=== PATIENT | female | born 1955 | race African-American/Black ===

== ENCOUNTER 2016-12-02 11:48 | Observation (INO) ==
[2016-12-02] MEDS ORDERED: Aspirin 81 MG TAB.CHEW PO ONE (12:16)
[2016-12-02] MEDS ORDERED: Nitroglycerin 0.4 MG TAB.SUBL SL ONE (12:16)
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
[2016-12-02 13:12] LABS: Basophils % 0.6 %; Eosinophils # 0.3 K/mcL (0.0-0.6); Eosinophils % 4.8 %; Hematocrit 42.4 % (35.3-44.9); Hemoglobin 13.6 g/dL (11.5-15.4); Immature Granulocytes % 0.3 % (0-4); Lymphocytes # 2.2 K/mcL (0.6-4.6); Lymphocytes % 33.9 %; Mean Corpuscular HGB Conc 32.1 g/dL (31.6-35.5); Mean Corpuscular Hemoglobin 28.2 pg (28.0-33.3); Mean Platelet Volume 10.8 fL (9.4-12.4); Monocytes # 0.3 K/mcL (0.0-1.3); Monocytes % 4.6 %; Neutrophils # 3.6 K/mcL (1.6-8.9); Platelet Count 224 K/mcL (140-400); Red Blood Count 4.82 M/mcL (3.82-4.97); Segmented Neutrophils % 55.8 %
[2016-12-02 13:20] LABS: Prothrombin Time 11.3 Seconds (9.4-12.1)
[2016-12-02 13:22] LABS: Activated Partial Thrombo Time 37.8 Seconds (26.0-36.0)
[2016-12-02 13:26] LABS: BUN/Creatinine Ratio 11 (6-26); Blood Urea Nitrogen 8 mg/dL (7-20); Calcium 9.6 mg/dL (8.6-10.8); Carbon Dioxide 25 mEq/L (19-29); Chloride 109 mEq/L (98-109); Glucose 86 mg/dL (70-99); Osmolality,Calculated 292 (280-300); Potassium 3.8 mEq/L (3.5-4.5); Sodium 142 mEq/L (136-145); eGFR For African Americans > 60 (> 60); eGFR For Non-African Americans > 60 (> 60)
[2016-12-02 13:55] LABS: Lipase 9 Units/L (8-78)
[2016-12-02] MEDS ORDERED: Acetaminophen 325 MG TABLET PO PRN (14:26)
[2016-12-02] MEDS ORDERED: Naloxone 0.4 MG/ML INJ IVP PRN (14:26)
--- NOTE | 2016-12-02 15:20 | Internal Med History&Physical ---
Date of Encounter: 12/02/16 Time of Encounter: 15:00 Assessment and Plan (1) Chest pain Current visit: Yes Status: Acute Atypical chest pain but multiple risk factors for coronary artery disease and ACS. We will trend troponins. Place on telemetry. Check A1c, lipid profile. Monitor vital signs. Stress test tomorrow. High risk for complications. Qualifiers: Chest pain type: precordial pain Qualified Code(s): R07.2 - Precordial pain (2) COPD exacerbation Current visit: Yes Status: Acute Acute exacerbation of chronic bronchitis. Will treat with prednisone, azithromycin. Bronchodilators and O2 supplementation (3) Essential hypertension Current visit: Yes Status: Acute (4) Diabetes mellitus, type 2 Current visit: Yes Status: Chronic Patient with history of diabetes mellitus type 2. Most recent A1c was 6%. Monitor blood sugars. Low-dose sliding scale insulin. 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 Vincent is a 61 year old female patient with a history of COPD, hypertension , diabetes who presented to the ER with complaints of chest pain. She has been having intermittent chest pain occasionally over the past couple of weeks but this morning her pain was much worse. It is located centrally in her chest and in the epigastric region and radiating to the left side. She says the pain gets worse when she gets excited or anxious and with activity. She denies any shortness of breath but she does have cough with production of yellowish sputum with tinges of blood for the past couple of days. Denies any fever chills or night sweats. She is a chronic cigarette smoker. Past Med Surg Social Fam HX - Past Medical History Attestation: Yes The following information was validated with the patient. Source: patient Medical history: diabetes, hypertension Psychiatric history: depression - Past Surgical History Surgical History: other - Social History Smoking Status: Current every day smoker Smokeless Tobacco Status: No Alcohol use: none Drug use: none - Additional Family History Additional family history: Reviewed and found to be noncontributory at this time Internal Medicine - H&P: Meds ALPRAZolam [Xanax 1 MG Tablet] 1 mg PO BID 12/02/16 [History] Albuterol Neb [Proventil Neb] 2.5 mg IH Q6H PRN 12/02/16 [History] Albuterol Sulfate [Proair Hfa] 2 puff IH Q4-6H PRN 12/02/16 [History] Bifidobacterium Infantis [Align] 4 mg PO DAILY 12/02/16 [History] Budesonide/Formoterol 160/4.5 [Symbicort 160/4.5] 2 puff IH BIDR 12/02/16 [ History] Cholecalciferol (D-3) [Vitamin D] 1,000 unit PO DAILY 12/02/16 [History] Diclofenac Sodium [Voltaren] 50 mg PO BID 12/02/16 [History] Escitalopram [Lexapro] 5 mg PO DAILY 12/02/16 [History] Estradiol [Estrace] 1 appl VG MOWEFR 12/02/16 [History] Gabapentin [Neurontin] 300 mg PO BID 12/02/16 [History] Gabapentin [Neurontin] 600 mg PO HS 12/02/16 [History] Guaifenesin [Mucinex] 600 mg PO HS PRN 12/02/16 [History] Ipratropium [Atrovent Inhaler] 2 puff IH QID 12/02/16 [History] Lisinopril [Zestril] 20 mg PO DAILY 12/02/16 [History] Metformin HCl [Glucophage] 1,000 mg PO BID 12/02/16 [History] Oxybutynin [Ditropan] 5 mg PO BID 12/02/16 [History] Polyvinyl Alcohol/Povidone/Pf [Refresh Classic Eye Drops] 1 drop OP DAILY [History] Psyllium Husk [Fiber] 0.52 gm PO DAILY 12/02/16 [History] Ranitidine HCl [Heartburn Relief] 150 mg PO HS 12/02/16 [History] Simvastatin [Zocor] 20 mg PO HS 12/02/16 [History] amLODIPine [Norvasc] 5 mg PO DAILY 12/02/16 [History] Allergies No Known Allergies Allergy (Verified 12/02/16 13:45) All Systems PM: A 10-system review of systems was performed and is negative for pertinent findings except as documented above in the HPI. - Constitutional Constitutional: no chills, no fever(s), no night sweats - EENT Eyes: no change in vision, no discharge, no pain, no photophobia Ears: no ear discharge, no ear pain, no tinnitus Nose, mouth and throat: no dysphagia, no nasal discharge, no neck pain, no sore throat - Cardiovascular Cardiovascular ROS IM: chest pain, no diaphoresis, no dyspnea, no lightheadedness, no palpitations, no syncope - Respiratory Respiratory: cough, excessive phlegm production, change in phlegm color, pain with cough, no dyspnea, no wheezing - Gastrointestinal Gastrointestinal: no abdominal pain, no diarrhea, no hematemesis, no hematochezia, no melena, no nausea, no vomiting - Genitourinary Genitourinary: no change in urinary stream, no dysuria, no flank pain, no hematuria - Musculoskeletal Musculoskeletal ROS IM: no numbness, no tingling - Integumentary Integumentary IM: no rash, no unusual bruising - Neurological Neurological ROS: no confusion, no convulsions, no focal weakness, no numbness, no tingling, no tremor(s) - Hematologic/Lymphatic Hematologic/Lymphatic: no easy bruising - Constitutional Vitals: Temp Pulse Resp BP Pulse Ox 97.5 F L 49 17 126/85 100 12/02/16 14:43 12/02/16 14:43 12/02/16 14:43 12/02/16 14:43 12/02/16 14:43 General appearance: Present: cooperative, mild distress, A&O X 3, answers questions appropriately - Neck Neck exam general surgery: Present: supple, trachea midline. Absent: lymphadenopathy - Respiratory Respiratory exam: Present: chest wall tenderness, CTAB. Absent: accessory muscle use, rales, rhonchi, wheezes - Cardiovascular Cardiovascular exam: Present: RRR, +S1, +S2. Absent: diastolic murmur, gallop, rubs, systolic murmur - GI/Abdominal GI/Abdominal exam: Present: normal bowel sounds, soft, no peritoneal signs. Absent: distended, tenderness - Extremities Exam Extremities exam: Present: warm, radial pulses palpable and symetrical. Absent : calf tenderness, cyanotic, pedal edema - Neurological Exam Neurological exam: Present: alert, CN II-XII intact, oriented X3, no focal deficits. Absent: facial droop, speech deficit Internal Med - H&P Results - Labs CBC & Chem 7: 12/02/16 12:55 12/02/16 12:55 - EKG Data -: EKG Interpreted by Myself EKG shows normal: sinus rhythm Rate: bradycardia - EKG Data EKG comments: 12/02/16 15:22 Sinus bradycardia without any acute ST segment changes
[2016-12-02] MEDS ORDERED: D5% in Water 1,000 ML IVC PRN (15:26)
[2016-12-02] MEDS ORDERED: *HR* Dextrose 50 % in Water (Syg) 50 ML SYRINGE IVP PRN (15:26)
[2016-12-02] MEDS ORDERED: Dextrose Gel 15 GM PO PRN ×2 (15:26)
[2016-12-02] MEDS ORDERED: Ipratropium/Albuterol Neb 3 ML IH PRN (15:34)
[2016-12-02] MEDS ORDERED: predniSONE 20 MG TABLET PO SCH (15:45)
[2016-12-02] MEDS ORDERED: Azithromycin 500 MG in D5% in Water 250 ML IVPB SCH (16:00)
[2016-12-02] MEDS: Insulin LISPRO 300 UNITS/3 ML VIAL SQ SCH (17:18)
[2016-12-02] MEDS ORDERED: Insulin LISPRO 300 UNITS/3 ML VIAL SQ SCH (21:00)
[2016-12-03 04:23] LABS: Chol/HDL Ratio 3.7 (0-4.9); Hemoglobin A1C 5.8 %
[2016-12-03] MEDS ORDERED: Regadenoson 0.4 MG/5 ML SYRINGE IVP ONE (06:20)
[2016-12-03] MEDS ORDERED: Aspirin Enteric Coated 81 MG Tablet PO SCH (09:00)
[2016-12-03] MEDS: Insulin LISPRO 300 UNITS/3 ML VIAL SQ SCH ×2 (10:13→13:02)
[2016-12-03 10:43] VITALS: BP 126/83
--- NOTE | 2016-12-03 10:49 | Nuclear Medicine Stress Report ---
Regadenoson Nuclear Stress Name: Sandi Vincent Date of Study: 12/03/2016 Date: 1955 Ht: 61.0 in Medical Record#: [id number] Age: 61 Wt: 182.0 lb Gender: Female Order #: [id number] Location: [facility] Room: [facility] Supervising Provider: Dat Dove CNP Reading Physician: Francesco Bautista DO, [facility], [facility] Ordering Physician: Lizet Lewis CNP Primary Care Physician: Dilma Travis DO Stress Technologist: Liseth Toussaint, AIDEN Aircraft Engine Assembler: Brooks Aguirre Indications: Chest Pain Impression: Pharmacologic stress ECG is non diagnostic for ischemia due to submaximal HR. Gated EF > 70%. Perfusion imaging was negative for ischemia or infarct. History: Hypertension Diabetes Hypercholesteremia History of Smoking Stress Test Summary: Stress Test Type: Pharmacologic Regadenoson 0.4mg/5ml given IV Baseline Information: Initial Heart Rate: 52 Blood Pressure: 144/86 Stress Information: Test Terminated Due to (primary): As per protocol Maximum Blood Pressure: 130/90 Maximum Heart Rate: 104 Percent Maximum Heart Rate Achieved: 65 Double Product: [id number] METS Reached: 1 Symptoms: No chest symptoms Nuclear Summary: SPECT myocardial perfusion imaging using [id number] Sestamibi given intravenously was performed at rest and following cardiac stress testing. The resting images were obtained following initial dose of 11.3 mCi. Following stress an additional dose of 35.5 mCi was given at peak exercise or 30 seconds post regadenoson infusion. Medication Given: Time Medication Dose Units Route Findings: Stress Note * Sinus bradycardia. * No baseline arrhythmias were noted. * Pharmacologic stress ECG is non diagnostic for ischemia due to submaximal HR. * No arrhythmias were noted during stress. * Patient had no chest pain during stress. Hemodynamic responses * Normal hemodynamic responses to pharmacologic stress. Study Quality * Study quality is average. Gated EF > 70% * Gated EF > 70%. Left Ventricle * The left ventricle is not dilated. * LVEDV = 78 mL. NORMALS * Normal wall motion. * Normal Segmental Perfusion in rest. * Normal segmental perfusion in stress. TID * No evidence of transient ischemic dilatation. TID ratio * TID ratio = 0.84. Lung Uptake * There is no evidence of increase lung uptake. Updated by Francesco Bautista DO, YANNICK, YUNG, TRACY on 12/03/2016 10:44:32 AM electronically signed on 12/03/2016 10:44:49 AM with status of Final
--- NOTE | 2016-12-03 13:51 | Discharge Summary ---
Date of Encounter: 12/03/16 Time of Encounter: 12:30 - Discharge Diagnosis (1) Chest pain Priority: Primary Status: Acute Comments: The patient reports sudden onset upper abdominal, low chest pain, that lasted about 4-5 hours. She said the pain began while she was sitting and smoking a cigarette, after moving a large piece of furniture by herself, exertion, and vacuuming. She said that she "felt funny", said that she felt hot, chest tightness, heaviness. Patient denies any chest pain or shortness of breath now. Her lower ribs both right and left, as well as xiphoid area are tender to palpation. She said it is area is also sore, pain increases with movement and deep inspiration. She said yesterday she was not able to take a deep breath at the time that this happened, now she is. Her EKG was normal sinus rhythm, her troponins were negative, TSH was within normal limits, A1c was 5.8. BNP is 38. Her pharmacologic stress ECG was nondiagnostic for ischemia due to stop maximal heart rate. Gated EF is greater than 70%, perfusion imaging was negative for ischemia or infarct. Qualifiers: Chest pain type: precordial pain Qualified Code(s): R07.2 - Precordial pain (2) COPD exacerbation Priority: Secondary Status: Acute Comments: Lungs are clear and diminished. Pt denies SOB or cough. Chest CT showed cardiomegaly. No consolidation, there are mildly prominent interstitial changes at lung bases bilaterally. This could be related to COPD or possible interstitial pneumonitis. Patient is being treated with steroids treatments and antibiotics. She is not requiring supplemental oxygen at this time. She is 97 and 98% on room air, she is in no distress, speaks easily in full sentences. (3) Essential hypertension Priority: Secondary Status: Acute Comments: Tonic. Continue home medications. Pressure has been well-controlled in inpatient setting. (4) Diabetes mellitus, type 2 Priority: Secondary Status: Chronic Comments: A1c is 5.8%. Continue to monitor blood sugars and continue home medication. Follow-up with primary care to determine necessity of medication. Qualifiers: Diabetes mellitus complication status: without complication Diabetes mellitus long term acute care registered nurse insulin use: without long term acute care registered nurse use Qualified Code(s): E11.9 - Type 2 diabetes mellitus without complications - Discharge Medications Prescriptions: Azithromycin [Azithromycin 6-Tab Pack] 250 mg PO PER PKG DI #6 tab predniSONE [Prednisone] 10 mg PO DAILY #9 tab.ds.pk Home Medications: ALPRAZolam [Xanax 1 MG Tablet] 1 mg PO BID 12/02/16 [History] Albuterol Neb [Proventil Neb] 2.5 mg IH Q6H PRN 12/02/16 [History] Albuterol Sulfate [Proair Hfa] 2 puff IH Q4-6H PRN 12/02/16 [History] Bifidobacterium Infantis [Align] 4 mg PO DAILY 12/02/16 [History] Budesonide/Formoterol 160/4.5 [Symbicort 160/4.5] 2 puff IH BIDR 12/02/16 [ History] Cholecalciferol (D-3) [Vitamin D] 1,000 unit PO DAILY 12/02/16 [History] Diclofenac Sodium [Voltaren] 50 mg PO BID 12/02/16 [History] Escitalopram [Lexapro] 5 mg PO DAILY 12/02/16 [History] Estradiol [Estrace] 1 appl VG MOWEFR 12/02/16 [History] Gabapentin [Neurontin] 300 mg PO BID 12/02/16 [History] Gabapentin [Neurontin] 600 mg PO HS 12/02/16 [History] Guaifenesin [Mucinex] 600 mg PO HS PRN 12/02/16 [History] Ipratropium [ATROVENT Inhaler] 2 puff IH QID 12/02/16 [History] Lisinopril [Zestril] 20 mg PO DAILY 12/02/16 [History] Metformin HCl [Glucophage] 1,000 mg PO BID 12/02/16 [History] Oxybutynin [Ditropan] 5 mg PO BID 12/02/16 [History] Polyvinyl Alcohol/Povidone/Pf [Refresh Classic Eye Drops] 1 drop OP DAILY [History] Psyllium Husk [Fiber] 0.52 gm PO DAILY 12/02/16 [History] Ranitidine HCl [Heartburn Relief] 150 mg PO HS 12/02/16 [History] Simvastatin [Zocor] 20 mg PO HS 12/02/16 [History] amLODIPine [Norvasc] 5 mg PO DAILY 12/02/16 [History] Azithromycin [Azithromycin 6-Tab Pack] 250 mg PO PER PKG DI #6 tab 12/03/16 [Rx] predniSONE [Prednisone] 10 mg PO DAILY #9 tab.ds.pk 12/03/16 [Rx] Allergies/Adverse Reactions: Allergies No Known Allergies Allergy (Verified 12/02/16 13:45) Procedures/tests Complete & Pending: Procedures Performed prior 72 hours Category Date Time Status NM sima perf SPECT multi [NM] Routine Exams 12/02/16 14:27 Taken SP pharm nuclear stress Routine Y 12/03/16 08:00 Completed Date of admission: 12/02/16 14:06 Primary care physician: Dilma Travis DO Discharging clinician: Lizet Lewis Anticipated date of discharge: 12/03/16 - Patient Status Disposition: Home, Self-Care Condition: Good Functional capacity at discharge: independent ambulation Overall status at discharge: patient is back to baseline - Discharge Instructions Follow Up With: Dilma Travis DO [Primary Care Provider] - Additional Instructions: Please follow up with your doctor in the next week to 10 days for a follow up appointment. Start your Z-pack and steroids tomorrow. Pick it up today, if you can. Resume the rest of your home medications. Talk with your primary care provider about your A1c, 5.8% and if you need to still stay on your medications for diabetes. Return to the ER if you have chest pain again, shortness of breath, dizziness, or for any other problems or concerns. Please try to get help to move furniture from now on. - Diet and Activity Activity: resume usual activities as tolerated Diet: diabetic diet Hospital course: Ms. Vincent is a 61 year old female with a prior medical history of depression, COPD, GERD, hyperlipidemia, hypertension, overactive bladder. Patient presented to the emergency department yesterday with complaint of chest pain that lasted 45 hours. Patient had been moving heavy piece of furniture alone, she been exerting herself by cleaning her house and vacuuming. She decided that she was tired and sat down for rest and began smoking a cigarette and states that she "felt funny". She describes it as feeling hot, flushed, and a tightness or heaviness in her chest. There was no radiation. There is no nausea, vomiting, shortness of breath. Pain is primarily in upper abdomen and lower anterior ribs bilaterally. Although she does have multiple risk factors for coronary artery disease, I do believe that this is musculoskeletal chest pain. It is reproducible with palpation to low anterior ribs bilaterally, it is reproducible with deep inspiration and movement. Patient states that she has patches in regards to smoking cessation. She said that she uses them sometimes. Chest x-ray showed cardiomegaly and mildly prominent interstitial changes at the lung bases which could be related to COPD, or possible interstitial pneumonitis. She has been treated with antibiotics and steroids, prescriptions for both have been called in to pharmacy. Patient will be sent home with Z-Benjamin, and prednisone 20 mg for 4 days and 10 mg for 3 days. EKG was negative, troponins were negative, BNP was 38, TSH is within normal limits. A1c is 5.8. Vitals and other labs were within normal limits. Patient had stress test today, EKG was nondiagnostic for ischemia due to submaximal heart rate. Gated EF is greater than 70%, perfusion imaging was negative for ischemia or infarct. Patient denies chest pain. She is in no respiratory distress. Her lungs are clear diminished. She speaks easily in full sentences and is able to easily ambulate in her room. Patient is ready for discharge. Time spent discussing smoking cessation with patient: 3 to 10 minutes - Time Spent with Patient Total time spent providing and/or coordinating discharge services: Less than 30 minutes - Constitutional Vitals: Temp Pulse Resp BP Pulse Ox 98.1 F 61 15 126/83 97 12/03/16 10:37 12/03/16 10:37 12/03/16 10:37 12/03/16 10:37 12/03/16 10:37 General appearance: Present: cooperative, mild distress, A&O X 3, pleasant, no acute distress, answers questions appropriately. Absent: severe distress - Head Head exam: Present: normal inspection - Eye Eye exam: Present: normal appearance, conjuntiva pink - ENT ENT exam: Present: mucous membranes moist, normal exam, normal external ear exam - Neck Neck exam general surgery: Present: normal inspection. Absent: lymphadenopathy , tenderness - Respiratory Respiratory exam: Present: chest wall tenderness, decreased breath sounds, CTAB. Absent: rales, respiratory distress, rhonchi, wheezes - Cardiovascular Cardiovascular exam: Present: RRR, +S1, +S2. Absent: clicks, diastolic murmur, gallop, systolic murmur - GI/Abdominal GI/Abdominal exam: Present: normal bowel sounds, soft. Absent: hepatomegaly, tenderness - Extremities Exam Extremities exam: Present: normal capillary refill, pedal edema, warm, radial pulses palpable and symetrical. Absent: joint swelling, tenderness - Neurological Exam Neurological exam: Present: alert, oriented X3, no focal deficits. Absent: facial droop, speech deficit - Skin Skin exam: Present: dry, normal color, warm
--- NOTE | 2016-12-05 16:44 | Electrocardiograph Report ---
[address] [address] Test Date: 2016-12-02 Pat Name: Sandi Vincent Department: 105 Room: 3B Gender: F Back Winder: : [id number] Requested By: Michael Royal Order Number: [id number] Reading MD: Constantino Hankins MD Measurements Intervals Stella Rate: 52 P: 52 MT: 196 QRS: -3 QRSD: 90 T: 0 QT: 426 QTc: 405 Interpretive Statements SINUS BRADYCARDIA Electronically Signed On 12-05-2016 16:42:56 EDT by Constantino Hankins MD
== END 2016-12-03 15:40 | disposition home or self-care (01) ==
LOC: EMEROO 11:48 → 3BNU 11:48
PROVIDERS: ADMIT Internal Medicine; ATTEND Registered Nurse